=== PATIENT | male | born 1955 | race Caucasian/White ===

== ENCOUNTER 2022-12-07 08:18 | Inpatient (IN) | payer BC, OTHER ==
[2022-12-07] MEDS ORDERED: dilTIAZem HCL 50 MG/10 ML - 10 ML VIAL IVPUSH ONE (08:41)
[2022-12-07] MEDS ORDERED: SODIUM CHLORIDE 0.9% 500 ML INFUS.BAG IV ONE (08:42)
[2022-12-07] MEDS ORDERED: dilTIAZem HCL 125 MG/25 ML - 25 ML VIAL ONE (08:42)
[2022-12-07 08:51] LABS: VENOUS BASE EXCESS -6.3 mmol/L (-2-2); VENOUS O2 SATURATION 61.2 % (70-80); VENOUS PCO2 37.5 mmHg (38-52); VENOUS PH 7.325 (7.310-7.410)
[2022-12-07] MEDS ORDERED: CALCIUM GLUC IN NACL, ISO-OSM 1 GM/50 ML BAG IVPB ONE ×2 (08:52→08:53)
[2022-12-07 08:56] LABS: INR 1.17 (0.83-1.09); PROTHROMBIN TIME (PATIENT) 13.5 SEC (9.7-13.0)
[2022-12-07 08:59] LABS: ACTIVATED PTT 29.2 SECONDS (25.2-36.5); POTASSIUM 3.2 mmol/L (3.5-5.1)
[2022-12-07 09:01] LABS: ALBUMIN 2.9 g/dl (3.4-5.0); BLOOD UREA NITROGEN 19.9 mg/dL (7-18); CALCIUM 8.4 mg/dL (8.5-10.1); MAGNESIUM 1.7 mg/dL (1.8-2.4)
[2022-12-07 09:04] LABS: CREATININE 1.3 mg/dL (0.55-1.3)
[2022-12-07 09:06] LABS: TOT PROT 9.9 g/dl (6.4-8.2)
[2022-12-07 09:07] LABS: BILIRUBIN,TOTAL 0.5 mg/dL (0.2-1)
[2022-12-07 09:09] LABS: N-TERMINAL BNP 5836.1 pg/ml (5-125)
[2022-12-07] MEDS ORDERED: MAGNESIUM SULFATE IN WATER 2 GM/50 ML IVPB IVPB ONE ×2 (09:18→09:35)
[2022-12-07 09:19] VITALS: BMI 26.5
[2022-12-07] MEDS ORDERED: POTASSIUM CHLORIDE TABS 20 MEQ TABLET.ER (FP) PO ONE ×4 (09:19→12:17)
[2022-12-07 09:34] LABS: BASO % 0.6 % (0-2.0); EOS % 1.8 % (0-4.5); HEMATOCRIT 31.3 % (35.4-49); HEMOGLOBIN 10.5 GM/dL (11.7-16.9); LYMPH % 15.8 % (8-40); MCHC 33.4 g/dl (32.0-35.9); MEAN CELL VOLUME 86.6 fl (80-96); MEAN PLT VOLUME 9.1 fl (7.5-11.1); MONO % 6.7 % (3.8-10.2); NEUT % 75.1 % (42.8-82.8); PLATELET COUNT 182 10^3/uL (134-434); RBC 3.61 M/mm3 (4.00-5.60); RDW 17.7 % (11.9-15.9); WHITE BLOOD COUNT 8.9 K/mm3 (4.0-10.0)
[2022-12-07] MEDS ORDERED: dilTIAZem HCL 30 MG TABLET PO ONE (09:50)
[2022-12-07] MEDS ORDERED: dilTIAZem HCL 30 MG TABLET ONE (09:53)
[2022-12-07] MEDS ORDERED: FUROSEMIDE 40 MG/4 ML INJECTABLE VIAL ONE ×2 (10:18→11:23)
[2022-12-07] MEDS ORDERED: FUROSEMIDE 40 MG/4 ML INJECTABLE VIAL IVPUSH ONE ×2 (10:19→10:53)
[2022-12-07] MEDS ORDERED: APIXABAN 5 MG TABLET PO ONE (10:24)
[2022-12-07] MEDS ORDERED: APIXABAN 5 MG TABLET ONE (10:33)
[2022-12-07] MEDS ORDERED: dilTIAZem HCL 30 MG TABLET PO SCH (12:00)
[2022-12-07] MEDS ORDERED: THIAMINE HCL 200 MG/2 ML VIAL IVPB ONE (12:02)
[2022-12-07] MEDS ORDERED: THIAMINE HCL 200 MG/2 ML VIAL ONE (12:17)
[2022-12-07 13:46] LABS: URINE APPEARANCE CLEAR; URINE BILIRUBIN NEGATIVE (NEGATIVE); URINE COLOR YELLOW; URINE GLUCOSE (UA) NEGATIVE (NEGATIVE); URINE KETONE NEGATIVE (NEGATIVE); URINE LEUK ESTERASE NEGATIVE (NEGATIVE); URINE NITRITE NEGATIVE (NEGATIVE); URINE PROTEIN TRACE (NEGATIVE); URINE UROBILINOGEN 0.2 mg/dL (0.2-1.0)
[2022-12-07 14:04] VITALS: TEMP 98.2
[2022-12-07 15:42] VITALS: BP 107/71; PULSE 105; RESP 18
[2022-12-07] MEDS ORDERED: APIXABAN 5 MG TABLET PO SCH (22:00)
== END 2022-12-07 15:57 | disposition short-term general hospital (02) | DRG 291 ==
LOC: JER 08:18 → JERBED 10:54
PROVIDERS: ADMIT Internal Medicine; ATTEND Internal Medicine
DX: I50.31 Acute diastolic (congestive) heart failure (principal); J96.91 Respiratory failure, unspecified with hypoxia; I48.91 Unspecified atrial fibrillation; I49.9 Cardiac arrhythmia, unspecified; F17.210 Nicotine dependence, cigarettes, uncomplicated; E87.6 Hypokalemia; I49.3 Ventricular premature depolarization; I51.7 Cardiomegaly; J81.0 Acute pulmonary edema; E83.42 Hypomagnesemia
CPT/HCPCS: 0241U-QW; 36415; 71045-TC-FY; 80053; 81003; 82803; 83735; 83880; 84443; 84484; 85025; 85610; 85730; 86850; 86900; 86901; 87086; 93005; 93010; 99291; 99292

== ENCOUNTER 2022-12-20 22:51 | Observation (INO) | payer OTHER ==
[2022-12-20 23:56] LABS: BASO % 0.5 % (0-2.0); EOS % 4.8 % (0-4.5); HEMATOCRIT 31.7 % (35.4-49); HEMOGLOBIN 10.8 GM/dL (11.7-16.9); LYMPH % 23.3 % (8-40); MEAN CELL VOLUME 85.2 fl (80-96); MEAN PLT VOLUME 9.4 fl (7.5-11.1); MONO % 7.8 % (3.8-10.2); NEUT % 63.6 % (42.8-82.8); PLATELET COUNT 204 10^3/uL (134-434); RBC 3.72 M/mm3 (4.00-5.60); RDW 16.9 % (11.9-15.9); WHITE BLOOD COUNT 6.7 K/mm3 (4.0-10.0)
[2022-12-21] LABS: INR 1.58 (0.83-1.09); PROTHROMBIN TIME (PATIENT) 18.3 SEC (9.7-13.0)
[2022-12-21 00:13] LABS: POTASSIUM 4.6 mmol/L (3.5-5.1)
[2022-12-21 00:15] LABS: ALBUMIN 3.1 g/dl (3.4-5.0); BLOOD UREA NITROGEN 37.5 mg/dL (7-18); CALCIUM 8.8 mg/dL (8.5-10.1)
[2022-12-21 00:18] LABS: CREATININE 1.7 mg/dL (0.55-1.3)
[2022-12-21 00:20] LABS: BILIRUBIN,TOTAL 0.5 mg/dL (0.2-1); TOT PROT 10.4 g/dl (6.4-8.2)
[2022-12-21] MEDS ORDERED: FUROSEMIDE 40 MG/4 ML INJECTABLE VIAL IVPUSH ONE (01:33)
[2022-12-21] MEDS ORDERED: FUROSEMIDE 40 MG/4 ML INJECTABLE VIAL ONE ×2 (01:40→06:31)
[2022-12-21] MEDS ORDERED: PANTOPRAZOLE 40 MG TABLET PO ONE (06:23)
[2022-12-21] MEDS: PANTOPRAZOLE 40 MG TABLET PO SCH (06:24)
[2022-12-21] MEDS: FUROSEMIDE 40 MG/4 ML INJECTABLE VIAL IVPUSH SCH ×2 (06:35→15:39)
[2022-12-21] MEDS ORDERED: INSULIN SLIDING SCALE (NOVOLOG) 1 VIAL SQ SCH (07:00)
[2022-12-21] MEDS ORDERED: FUROSEMIDE 40 MG/4 ML INJECTABLE VIAL IVPUSH SCH (10:00)
[2022-12-21] MEDS ORDERED: SPIRONOLACTONE 25 MG TABLET PO SCH (10:00)
[2022-12-21] MEDS ORDERED: FUROSEMIDE 40 MG TABLET (FP) PO SCH (10:00)
[2022-12-21] MEDS ORDERED: METOPROLOL TARTRATE 25 MG TABLET (FP) PO SCH (10:00)
[2022-12-21 10:37] VITALS: BMI 26.1
[2022-12-21] MEDS: FOLIC ACID 1 MG TABLET (FP) PO SCH (10:48)
[2022-12-21] MEDS: METOPROLOL TARTRATE 25 MG TABLET (FP) PO SCH ×2 (10:48→23:11)
[2022-12-21] MEDS: MULTIVITAMINS (DAILY MVI) TABLET (FP) PO SCH (10:48)
[2022-12-21] MEDS: APIXABAN 5 MG TABLET PO SCH ×2 (10:48→23:12)
[2022-12-21] MEDS: LISINOPRIL 10 MG TABLET PO SCH (10:48)
[2022-12-21] MEDS: THIAMINE HCL 100 MG TABLET (FP) PO SCH (10:48)
[2022-12-21 12:21] LABS: BASO % 0.6 % (0-2.0); HEMOGLOBIN 10.6 GM/dL (11.7-16.9); MCH 28.6 pg (25.7-33.7); MCHC 33.1 g/dl (32.0-35.9); MEAN CELL VOLUME 86.2 fl (80-96); MEAN PLT VOLUME 9.5 fl (7.5-11.1); NEUT % 56.4 % (42.8-82.8); PLATELET COUNT 216 10^3/uL (134-434); RBC 3.71 M/mm3 (4.00-5.60); RDW 16.4 % (11.9-15.9); WHITE BLOOD COUNT 5.2 K/mm3 (4.0-10.0)
[2022-12-21 12:53] LABS: POTASSIUM 4.5 mmol/L (3.5-5.1)
[2022-12-21 12:55] LABS: ALBUMIN 3.1 g/dl (3.4-5.0); BLOOD UREA NITROGEN 34.3 mg/dL (7-18); CALCIUM 8.9 mg/dL (8.5-10.1); MAGNESIUM 1.8 mg/dL (1.8-2.4)
[2022-12-21 12:58] LABS: CREATININE 1.7 mg/dL (0.55-1.3)
[2022-12-21 12:59] LABS: BILIRUBIN,TOTAL 0.5 mg/dL (0.2-1); TOT PROT 10.4 g/dl (6.4-8.2)
[2022-12-21 20:58] LABS: HIV INTERPRETATION PRESUMPTIVE POSITIVE (NEGATIVE)
[2022-12-21 22:00] LABS: PH,URINE 5.5 (5.0-8.0); URINE APPEARANCE CLEAR; URINE BILIRUBIN NEGATIVE (NEGATIVE); URINE COLOR YELLOW; URINE GLUCOSE (UA) NEGATIVE (NEGATIVE); URINE KETONE NEGATIVE (NEGATIVE); URINE LEUK ESTERASE NEGATIVE (NEGATIVE); URINE NITRITE NEGATIVE (NEGATIVE); URINE PROTEIN NEGATIVE (NEGATIVE); URINE UROBILINOGEN 0.2 mg/dL (0.2-1.0)
[2022-12-22] MEDS: PANTOPRAZOLE 40 MG TABLET PO SCH (06:23)
[2022-12-22] MEDS: FUROSEMIDE 40 MG/4 ML INJECTABLE VIAL IVPUSH SCH (06:23)
[2022-12-22] MEDS: LISINOPRIL 10 MG TABLET PO SCH (10:15)
[2022-12-22] MEDS: THIAMINE HCL 100 MG TABLET (FP) PO SCH (10:15)
[2022-12-22] MEDS: APIXABAN 5 MG TABLET PO SCH (10:15)
[2022-12-22] MEDS: MULTIVITAMINS (DAILY MVI) TABLET (FP) PO SCH (10:15)
[2022-12-22] MEDS: METOPROLOL TARTRATE 25 MG TABLET (FP) PO SCH (10:15)
[2022-12-22] MEDS: FOLIC ACID 1 MG TABLET (FP) PO SCH (10:16)
[2022-12-22] MEDS ORDERED: SPIRONOLACTONE 25 MG TABLET PO SCH (11:00)
[2022-12-22 18:15] VITALS: BP 124/82; PULSE 102; RESP 20; TEMP 97.8
[2022-12-23] MEDS ORDERED: FUROSEMIDE 40 MG TABLET (FP) PO SCH (10:00)
== END 2022-12-22 18:40 | disposition home or self-care (01) ==
LOC: JER 22:51 → JERBED 12-21 01:33 → J4S 12-21 10:01 → J4W 12-21 10:31
PROVIDERS: ADMIT Internal Medicine; ATTEND Internal Medicine
PROC: 3E033GC Introduction of Other Therapeutic Substance into Peripheral Vein, Percutaneous Approach (ICD-10-PCS; principal; 2022-12-21)
DX: I50.20 Unspecified systolic (congestive) heart failure (principal); I48.91 Unspecified atrial fibrillation; N17.9 Acute kidney failure, unspecified; F10.10 Alcohol abuse, uncomplicated; I25.10 Atherosclerotic heart disease of native coronary artery without angina pectoris; R94.4 Abnormal results of kidney function studies; R00.2 Palpitations; N18.9 Chronic kidney disease, unspecified; R33.9 Retention of urine, unspecified; Z79.01 Long term (current) use of anticoagulants; Z87.891 Personal history of nicotine dependence
CPT/HCPCS: 0241U-QW; 36415; 71045-TC-FY; 76775-TC; 76856-TC; 80053; 81003; 82962; 83735; 83880; 84100; 84484; 85025; 85379; 85610; 85730; 86359; 86360; 86705; 86803; 86850; 86900; 86901; 87340; 87389; 87517; 87536; 93005; 93010; 93971-TC; 96374; 96376; 99285-25; G0378